=== PATIENT | male | born 1980 | race Caucasian/White ===

== ENCOUNTER 2016-12-18 15:47 | Emergency (ER) | payer OTHER ==
[~2016-12-18] VITALS: Ht 188 cm; Wt 81.0 kg
[2016-12-18] MEDS ORDERED: SODIUM CHLORIDE 0.9% 1,000 ML IV ONE (17:56)
[2016-12-18] MEDS ORDERED: CYANOCOBALAMIN 1000MCG/ML VIAL IM ONE (18:00)
[2016-12-18] MEDS ORDERED: LORAZEPAM 2MG/ML CPJ IV ONE (23:15)
[2016-12-18 23:36] LABS: BASOPHILS % 0.3 % (0.0-2.0); EOSINOPHILS % 0.5 % (0.0-5.0); HEMATOCRIT. 41.1 % (42.0-52.0); HEMOGLOBIN. 14.7 g/dL (14.0-18.0); LYMPHOCYTES % 14.6 % (20.0-50.0); MEAN CORPUSCULAR HEMOGLOBIN 37.2 pg (28.0-32.0); MEAN CORPUSCULAR VOLUME 103.6 fL (80.0-94.0); NEUTROPHILS % 78.6 % (40.0-76.0); PLATELET 199 x1000/uL (130-400); RED BLOOD CELL COUNT 3.96 mill/uL (4.7-6.1); RED CELL DISTRIBUTION WIDTH 15.5 % (11.6-14.6)
[2016-12-18 23:54] LABS: CHLORIDE 107 mEq/L (98-107)
[2016-12-19] LABS: AMMONIA 38 uMol/L (<32)
[2016-12-19 00:03] LABS: CARBON DIOXIDE 29 mEq/L (21-32); ETHANOL BLOOD 293 mg/dL
[2016-12-19 01:00] VITALS: BP 108/74
== END 2016-12-19 01:30 | disposition home or self-care (01) ==
LOC: EDBD 15:47 → ER 15:47
DX: G31.2 Degeneration of nervous system due to alcohol (principal); D53.9 Nutritional anemia, unspecified; E53.8 Deficiency of other specified B group vitamins; E86.0 Dehydration; R16.0 Hepatomegaly, not elsewhere classified; E83.51 Hypocalcemia; K29.20 Alcoholic gastritis without bleeding; F17.200 Nicotine dependence, unspecified, uncomplicated; Y90.8 Blood alcohol level of 240 mg/100 ml or more; Z53.20 Procedure and treatment not carried out because of patient's decision for unspecified reasons
CPT/HCPCS: 36415; 80048; 80307; 80329; 82140; 85025; 96361; 96374; 99285; G0482; J2060; J3420; J7030; Z7610

== ENCOUNTER 2016-12-22 15:15 | Emergency (ER) | payer OTHER ==
[~2016-12-22] VITALS: Ht 180.3 cm; Wt 76.0 kg
[2016-12-22] MEDS ORDERED: SODIUM CHLORIDE 0.9% 1,000 ML IV ONE (15:38)
[2016-12-22] MEDS ORDERED: ZIPRASIDONE MESYLATE 20MG/VIAL IM ONE (15:45)
[2016-12-22] MEDS ORDERED: LORAZEPAM 2MG/ML CPJ IM ONE (15:45)
[2016-12-22] MEDS ORDERED: TETANUS, DIPHTHERIA, PERTUSSIS VAC/PF 0.5ML (>7YR OLD) IM ONE (15:45)
[2016-12-22 16:23] LABS: CHLORIDE 110 mEq/L (98-107)
[2016-12-22 16:26] LABS: CARBON DIOXIDE 26 mEq/L (21-32)
[2016-12-22 16:36] LABS: BASOPHILS % 0.7 % (0.0-2.0); EOSINOPHILS % 0.5 % (0.0-5.0); HEMOGLOBIN. 14.6 g/dL (14.0-18.0); LYMPHOCYTES % 18.3 % (20.0-50.0); MEAN CORPUSCULAR HEMOGLOBIN 36.6 pg (28.0-32.0); MEAN CORPUSCULAR VOLUME 102.9 fL (80.0-94.0); MEAN PLATELET VOLUME 6.5 fl (7.4-10.4); NEUTROPHILS % 72.5 % (40.0-76.0); PLATELET 150 x1000/uL (130-400); RED BLOOD CELL COUNT 3.98 mill/uL (4.7-6.1); RED CELL DISTRIBUTION WIDTH 15.4 % (11.6-14.6)
[2016-12-22 16:37] LABS: ETHANOL BLOOD 423 mg/dL
[2016-12-22] MEDS ORDERED: CEFAZOLIN 1000MG PREMIX 50 ML IV ONE (19:00)
[2016-12-22] MEDS ORDERED: VANCOMYCIN 1 G PREMIX 200 ML IV SCH (19:00)
[2016-12-22] MEDS ORDERED: BACITRACIN ZINC OINT UDPKT TOP ONE (19:00)
[2016-12-23 00:27] VITALS: BP 123/89
== END 2016-12-23 00:27 | disposition home or self-care (01) ==
LOC: ER 17:20
DX: T51.0X1A Toxic effect of ethanol, accidental (unintentional), initial encounter (principal); G92 Toxic encephalopathy; S51.811A Laceration without foreign body of right forearm, initial encounter; K21.9 Gastro-esophageal reflux disease without esophagitis; I10 Essential (primary) hypertension; R00.0 Tachycardia, unspecified; Z78.1 Physical restraint status; Z88.0 Allergy status to penicillin; Z86.19 Personal history of other infectious and parasitic diseases; Y90.8 Blood alcohol level of 240 mg/100 ml or more; W25.XXXA Contact with sharp glass, initial encounter; Y92.89 Other specified places as the place of occurrence of the external cause
CPT/HCPCS: 36415; 80053; 80307; 80329; 84443; 85025; 90471; 90715; 93005; 96361; 96365; 96372; 99285; G0482; J2060; J3370; J3486; J7030; Z7610

== ENCOUNTER 2016-12-30 14:47 | Emergency (ER) | payer OTHER ==
[~2016-12-30] VITALS: Ht 188 cm; Wt 87.0 kg
[2016-12-30] MEDS ORDERED: SODIUM CHLORIDE 0.9% 1,000 ML IV ONE (15:21)
[2016-12-30] MEDS ORDERED: ONDANSETRON HCL 4MG/2ML VIAL IV STA (15:21)
[2016-12-30 15:49] LABS: BASOPHILS % 0.8 % (0.0-2.0); EOSINOPHILS % 0.4 % (0.0-5.0); HEMATOCRIT. 38.9 % (42.0-52.0); HEMOGLOBIN. 13.9 g/dL (14.0-18.0); LYMPHOCYTES % 21.2 % (20.0-50.0); MEAN CORPUSCULAR HEMOGLOBIN 36.8 pg (28.0-32.0); MEAN CORPUSCULAR VOLUME 102.7 fL (80.0-94.0); MEAN PLATELET VOLUME 6.3 fl (7.4-10.4); MONOCYTES % 6.8 % (2.0-8.0); NEUTROPHILS % 70.8 % (40.0-76.0); PLATELET 75 x1000/uL (130-400); RED BLOOD CELL COUNT 3.78 mill/uL (4.7-6.1); RED CELL DISTRIBUTION WIDTH 15.6 % (11.6-14.6)
[2016-12-30 16:01] LABS: CARBON DIOXIDE 25 mEq/L (21-32); CHLORIDE 110 mEq/L (98-107)
[2016-12-30 16:18] LABS: ETHANOL BLOOD 475 mg/dL
[2016-12-30 17:00] VITALS: BP 122/79
[2016-12-30] MEDS ORDERED: POTASSIUM CHLORIDE 20MEQ TABLET SR PO ONE ×2 (17:00→18:15)
== END 2016-12-30 19:00 | disposition left against medical advice (07) ==
LOC: ER 14:47
DX: F10.229 Alcohol dependence with intoxication, unspecified (principal); F17.210 Nicotine dependence, cigarettes, uncomplicated; Y90.8 Blood alcohol level of 240 mg/100 ml or more; Z88.0 Allergy status to penicillin
CPT/HCPCS: 36415; 80053; 83690; 85025; 96361; 96374; 99284; G0482; J2405; J7030; Z7610